=== PATIENT | male | born 1950 | race Caucasian/White ===

== ENCOUNTER 2024-09-09 07:27 | Inpatient (IN) ==
--- OUTSIDE RECORDS SUMMARY | 2024-09-09 07:33 | External Medical Summary | Summary of Care ---
Author Name Unknown Organization [facility] Address [address] [facility] [place] [address] Phone [phone] Care Team Providers Care Cardiac Cath Technologist Name Role Phone Aman Crawford MD Primary Care Provider [phone] Encounter Details Date Type Department Care Team (Late st Contact Info) Description 08/17/2024 Population Health External Data Unspecified Department Allergies Active Allergy Reactions Criticality Noted Date Comments Bee Venom 04/10/2019 Hornet Venom 05/18/2019 Penicillin G 05/27/2001 Penicillins Unknown 12/31/1997 Made prostate swell Tolerated ancef 04/09/14 no reaction documented as of this encounter (statuses as of 08/17/2024) Medications MULTIPLE VITAMIN PO CAPS one pill each day Active OMEGA 3 1000 MG PO CAPS one pill each day Active OCUVITE PO TABS 2 Active Turmeric 500 MG Capsule Take 1 Capsule by mouth in the morning. Active Calcium Polycarbophil (FIBER) 625 MG TABSIndications:u se as directed Activ e Fluticasone-Salme terol 100-50 MCG/ACT Inhalation Aerosol Powder Breath Activated (Advair Diskus) Inhale 1 Puff by mouth in the morning and 1 Puff before bedtime. 2 Active Ciclopirox 8 % External Solution Apply over nail and surrounding skin. Apply daily over previous coat. After seven (7) days, may remove with alcohol and continue cycle. 6.6 mL 6 4 Active Tiotropium [place] Monohydrate 18 MCG Inhalation Capsule (Spiriva HandiHaler)Indica tions:in afternoon Inhale 1 Capsule by mouth daily. For inhaler only, do not swallow. Active Atorvastatin Calcium 10 MG Oral Tablet (Lipitor)Indicati ons:Dyslipidemia, goal LDL below 100 Take 1 Tablet by mouth in the morning. In the morning.. 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 Increased risk for Kathleen Syndrome. Prostatitis 06/15/2016 01/21/2018 Malignant neoplasm of latera l wall of urinary bladder 04/06/2014 02/07/2023 Solitary kidney, congenital 07/28/2012 01/21/2018 Benign neoplasm of colon 02/19/2009 Overview (02/20/2009): hyperplastic/repeat colonoscopy in 3-5 yrs ADVANCE DIRECTIVE INFORMATION 12/28/2005 02/06/2021 Overview (12/28/2005): Pt has booklet. PEPTIC ULCER NOS -/96 06/02 documented as of this encounter (statuses as of 08/17/2024) Immunizations Name Administration Dates Next Due COVID-19 mRNA, LNP-s, No Pre serve, 2-Dose Series (Moderna) 05/16/2021,09/28/2020,08/31/2020 COVID-19, mRNA, LNP-s, PF, B ooster, 100mcg/0.5mg (Moderna) 08/16/2021 Pneumococcal Conjugate Vacc, 13 Valent (Prevnar) 11/16/2017 Pneumococcal Polysaccharide PPV23 (Pneumovax) 05/14/2018,11/23/2014,06/10/2009 Seasonal Influenza Vac., MDV , IM, 0.5 mL (Fluzone) 05/12/2016,05/31/2013,05/18/2012,05/26,05/17/2009 Seasonal Influenza, Quadriva lent Hd (Fluzone Hd) 05/19/2023 Seasonal Influenza, Quadriva lent Hd, 65+ Yrs 05/22/2022,05/11/2020 Seasonal Influenza, Quadriva lent, No Preserve, IM 06/06/2015 Seasonal Influenza, Trivalen t, Adjuvanted, 65+ YRS, PF, (Fluad) 05/03/2021 TDAP, Age 7 and older, IM (Adacel) 02/14/2024, Varicella Zoster Vaccine (Adult) 09/17/2011 Zoster Vaccine Recombinant (Shingrix) 05/29/2021 ,02/21/2021 documented as of this encounter Social History Tobacco Use Types Packs/Day Years Used Date Smoking Tobacco: Every Day Cigarettes 1 56 Smokeless Tobacco: Never Alcohol Use Standard Drinks/Week Comments Yes 1.7 (1 standard drink = 0.6 oz p ure alcohol) once a week PHQ-2 Answer Date Recorded PHQ-2 Score 0 05/01/2020 Hunger Vital Sign Answer Date Recorded Within the past 12 months, y ou worried that your food would run out before you got the money to buy more. Never true 02/10/20 23 Within the past 12 months, t he food you bought just didn't last and you didn't have money to get more. Never true 02/09/2023 Childcare Answer Date Recorded Do you feel overwhelmed with taking care of a child, family member or friend? No 02/09/2023 Does your family need help f inding childcare? (Household - for ages 0-17 years) Not on file 02/09/2023 Clothing Answer Date Recorded Have you been unable to get clothing when it was really needed? No 02/09/2023 Is your family able to get c lothes or diapers when needed? (Household - for ages 0-17 years) Not on file 02/09/2023 Personal Safety Answer Date Recorded Do you feel unsafe or have concerns for your saf ety? No 02/09/2023 Do you have concerns for you r family's safety? (Household - for ages 0-17 years) Not on file 02/09/2023 Utilities Answer Date Recorded Do you have trouble paying y our heating, water, or electric bill? No 02/09/2023 Is your family able to pay t he heat, water, or electric bill? (Household - for ages 0-17 years) Not on file 02/09/2023 Does your family have access to good internet? (Household - for ages 0-17 years) Not on file 02/09/2023 Employment Status Answer Date Recorded Are you unemployed or without regular income? No 02/09/2023 Does the household have a re gular source of income? (Household - for ages 0-17 years) Not on file 02/09/2023 Social Connections Answer Date Recorded How often do you feel lonely or isolated from th ose around you? Never 02/09/2023 Financial Resource Strain Answer Date R ecorded Do you have any trouble payi ng for your medications, or do you think you might in the future? No 02/09/2023 Does your family have troubl e paying for medicine? (Household - for ages 0-17 years) Not on file 02/09/2023 Transportation Needs Answer Date Record ed READ ONLY Do you have troubl e getting a ride to medical visits or work? Never True 02/09/2023 Does your family have a hard time getting a ride to doctors visits? (Household - for ages 0-17 years) Not on file 02/09/2023 Has lack of transportation k ept you from medical appointments, meetings, work, or from getting things needed for daily living? Check all that apply. (Adult - for ages 18 years and over) Not on file 02/09/2023 Do you (or your family) have trouble finding or paying for a ride (transportation)? (Household - for ages 0-17 years) Not on file 02/09/2023 Housing Stability Answer Date Recorded Do you currently live in a s helter or have no steady place to sleep at night? No 02/09/2023 READ ONLY Do you think you a re at risk of becoming homeless? No 02/09/2023 Does your family worry about paying for your home or becoming homeless? (Household - for ages 0-17 years) Not on file 0 02/09/2023 Are you homeless or worried that you might be in the future? (Adult - for ages 18 years and over) Not on file 3 Are you (or your family) robert eless or worried that you might be in the future? (Household - for ages 0-17 years) Not on file Food Insecurity Answer Date Recorded Do you need food for this week? No 02/09/2023 Are you able to get enough f ood for your family? (Household - for ages 0-17 years) Not on file 02/09/2023 Does your family need food t his week? (Household - for ages 0-17 years) Not on file 02/09/2023 Do you always have enough fo od for your family? (Household - for ages 0-17 years) Not on file 02/09/2023 Sex and Gender Information Value Date Recorded Sex Assigned at Male 02/09/2023 1:01 PM EDT Legal Sex Male 7:04 AM EST Gender Identity Male 02/09/2023 1:01 PM EDT Sexual Orientation Straight 02/09/2023 1: 01 PM EDT Occupation Industry Job Start Date Job End Date retired: [employer] Not on file Not on file Not on file documented as of this encounter Plan of Treatment Upcoming Encounters Date Type Department Care Team (Late st Contact Info) Description 10/26/2024 9:00 AM EDT Imaging Radiology [address] [place] [id number] Scheduled Procedures Name Priority Associated Diagnoses Date/Ti me COLONOSCOPY FLEXIBLE PROXIMAL DIAGNOSTIC Recall Kathleen syndrome History of colonic polyps ESOPHAGOGASTRODUODENOSCOPY ( EGD), FLEXIBLE, TRANSORAL, DIAGNOSTIC Recall Kathleen syndrome History of colonic polyps Health Maintenance Due Date Last Done Comments DISCUSS TOBACCO CESSATION (REFER TO SMARTSET #2601) 1950 Alpha-1 Antitrypsin 1967 Adult Wellness Visit 05/01/2021 05/01/2020 Depression Screening 05/01/2021 05/01/2020 COVID-19 Vaccine ( season) 2024 05/20/2023, 04/11/2022, 08/16/2021, Additional history exists Influenza Vaccine (FLU shot) (#1) 2024 05/19/2023, 05/22/2022, 05/03/2021, Additional history exists Colonoscopy Positive Kathleen Syndrome Annual,Ages 25 & Up 01/20/2025 01/21/2024, 01/21/2024, 06/23/2018, Additional history exists O2 ASSESSMENT COMPLETED IN PAST YEAR FOR COPD 01/20/2025 01/21/2024 DTap/Tdap Vaccines (3 - Td or Tdap) 02/13/2034 02/14/2024, 09/23/2012 Pneumococcal Vaccine: 50+ Years Completed 05/14/2018, 11/16/2017, 11/23/2014, Additional history exists Zoster Vaccines Completed 05/29/2021, 01/25, 02/21/2021, Additional history exists Lung Cancer Screening Completed 08/03/2022 , 06/25/2022, 06/16/2021, Additional history exists HPV (Gardasil) Vaccine Aged Out No lo nger eligible based on patient's age to complete this topic Hepatitis B Vaccine Aged Out No longe r eligible based on patient's age to complete this topic MENINGOCOCCAL (MENACTRA/MENVEO) Aged Out No longer eligible based on patient's age to complete this topic documented as of this encounter Medical Devices Implanted Type Area Sponge Fisherman Device Identifier Shelf Expiration Date Model / Serial / Lot Mesh Preshaped Large - [id number] Implanted:Qty: 1 on 09/23/2015 by José Antonio Castro MD at OR [facility] Right: Groin CR BARD : DAVOL 02/22/2019 [id number] / / [id number] documented as of this encounter Advance Directives * Full Code (Latest Code Status on File) Date Activated Date Inactivated Comments 05/25/2014 10:11 AM 05/25/2014 5:38 PM This orde r reflects the patients wishes and were consensually agreed upon. * Full Code Date Activated Date Inactivated Comments 04/09/2014 7:04 AM 04/09/2014 2:20 PM This order r eflects the patients wishes and were consensually agreed upon. Care Teams Cardiac Cath Technologist Relationship Specialty Start Date End Date Aman Crawford MD [address] [place] [id number] PCP - General Family Medicine 10/31/20 documented as of this encounter
--- NOTE | 2024-09-09 07:58 | Emergency Department Note ---
Impression & Plan Acute exacerbation of chronic obstructive pulmonary disease, Hypoxia, Influenza A, Pneumonia ED Provider Note NAME: NATALIE JACKSON AGE: 74 SEX: M : 1950 ARRIVES VIA: Walk-In INFORMANT: Patient, ED PROVIDER(S): Khoi Miles DO CHIEF COMPLAINT: Shortness of breath HPI: The patient is a 74-year-old male who presented to the emergency department for an evaluation of shortness of breath. The patient noticed worsening shortness of breath over the course the last 4 to 5 days. He is had a cough with dark sputum. He denies having any fever. He has had some weight loss recently. He does have a history of tobacco use as well as bladder cancer. He denies having any abdominal pain or vomiting. The patient states his symptoms have slowly been worsening and are now at rest as well as with exertion. His significant other asked him to come the emergency department today. ROS: See above HPI for pertinent positives & negatives. A total of 10 systems reviewed and were otherwise negative. PAST MEDICAL HISTORY: See Below PAST SURGICAL HISTORY: See Below FAMILY HISTORY: See Below SOCIAL HISTORY: See Below HOME MEDICATIONS: See Below ALLERGIES: See Below VITALS: See Below PHYSICAL EXAMINATION: GENERAL: The patient is awake and alert. He is very frail appearing. EYES: The conjunctivae are clear. The pupils are round and reactive. EARS, NOSE, MOUTH AND THROAT: The nose is without any evidence of any deformity. NECK: The neck is nontender and supple. RESPIRATORY: Diminished breath sounds are noted throughout. There was significant tachypnea as well as conversational dyspnea. CARDIOVASCULAR: Tachycardic and regular heart sounds were noted to auscultation. There is no definite murmur. GASTROINTESTINAL: The abdomen is soft. Abdomen is nontender. MUSCULOSKELETAL/EXTREMITIES: There is no evidence of gross deformity full range of motion is noted in the hips and shoulders. SKIN: There is no obvious evidence of any rash. There are no petechiae, pallor or cyanosis noted. NEUROLOGIC: Patient is awake alert and oriented x3 MEDICAL DECISION MAKING: The patient is a 74-year-old male who presented to the emergency department for an evaluation of difficulty breathing. Patient has a history of COPD. He does have a history of concurrent tobacco use. He was very hypoxic and tachycardic. He was treated with an hour-long DuoNeb as well as IV steroids IV fluids and IV antibiotics. He was also treated with Tamiflu after flu swab came back positive. I discussed the patient's laboratory and radiographic studies with him. Given his abnormal vital signs and findings I discussed his condition with the on-call [facility]. They have agreed to evaluate the patient in the emergency department for further management and disposition. Triage Nursing notes reviewed. Prior medical records reviewed Vital Signs: reviewed and remarkable for tachycardia and hypoxia. Differential diagnosis: Reactive airway disease, pneumonia, pneumothorax, COPD, CHF, infections, cardiac ischemia, pulmonary embolism, musculoskeletal, gastrointestinal, as well as other pathologies. ER treatment provided: See below Diagnostics interpreted by me: ECG: EKG was obtained in the emergency department. My interpretation is sinus tachycardia at 129 bpm. PVCs were noted. Nonspecific ST abnormalities were noted. This was compared to a tracing from November 22, 2012. There was an increase in the rate otherwise no specific changes noted. Cardiac Monitoring: An order was placed for continuous cardiac monitoring. The monitor shows a rate of 116 bpm with sinus tachycardia. Laboratory studies: As stated above and show below. Imaging studies: See below. Radiographic imaging was reviewed by myself Consultation(s): I discussed this case with Carmella who is on-call for the [facility]ist group. ED COURSE: Procedures: none Critical Care: I have personally spent greater than 45 minutes of critical care time in the direct management of this patient. This includes bedside care, interpretation of diagnostic studies, and testing, discussion with consultants, patient, and family members, and other required patient management activities. This 45 minutes is in excess of all separately billable procedures. Past Med/Surg History Problem List (Updated 09/09/24 @ 11:47 by Carmella Lino PA-C) Hypomagnesemia Acute hypoxic respiratory failure Bronchopneumonia Sepsis Pneumonia (Acute) Influenza A (Acute) Hypoxia (Acute) Acute exacerbation of chronic obstructive pulmonary disease (Acute) Solitary kidney Bladder cancer Medical History Hyperlipidemia Stomach ulcer No significant past medical history Surgical History S/P hernia repair S/P bladder tumor excision with fulguration Hx of arthroscopy of knee Family History Father Diabetes Sister Diabetes Mother Lung cancer Other No significant family history Social History Smoking Status: Former smoker Tobacco Type: Cigarettes Hx Alcohol Use: Yes Preferred Language: Andorran marital status: current occupational status: retired Feels Safe at Home: Yes Allergies Allergies Allergy/AdvReac Type Severity Reaction Status Date / Time Penicillins Allergy Intermediate PROSTATE Verified 05/29/20 10:41 SWELLED Home Meds Home Medications Medication Instructions Recorded Confirmed atorvastatin 10 mg tablet 10 mg PO DAILY 03/29/19 05/29/20 calcium carbonate (Calcium 600) 600 mg PO DAILY 03/29/19 05/29/20 cholecalciferol (vitamin D3) 50 2,000 unit PO DAILY 03/29/19 05/29/20 mcg (2,000 unit) capsule (Vitamin D3) glucosamine sulfate 500 mg tablet 500 mg PO DAILY 03/29/19 05/29/20 lactobacillus combination no.4 3 0 mmu cells PO DAILY 03/29/19 05/29/20 billion cell capsule (Probiotic) multivitamin 1 tab PO DAILY 03/29/19 05/29/20 vitamins A,C,C-qnok-rcsrxb 2,148 1 tab PO DAILY 03/29/19 05/29/20 mcg-113 mg-45 mg-17.4 mg tablet (PreserVision AREDS) Curcumin 1 cap PO DAILY 09/23/19 05/29/20 coenzyme Q10 30 mg capsule (CoQ-10) 30 mg PO DAILY 09/23/19 05/29/20 fiber 4 cap PO DAILY 09/23/19 05/29/20 Previous Rx's Medication Instructions Recorded epinephrine 0.3 mg/0.3 mL 0.3 mg (0.3 mL) IM Q3H PRN 03/29/19 injection, auto-injector (EpiPen bronchodilation #2 ea 2-Kamaljit) Results & Data (ED) Vital Signs Vital Signs - 24 hr 09/09/24 07:41 09/09/24 07:50 09/09/24 07:58 Temperature 37.4 C Temperature Source Oral Pulse Rate 128 H 122 H Pulse Rate [Right] Respiratory Rate 26 H 34 H Respiratory Effort / Characteristics Spontaneous Blood Pressure 125/77 Blood Pressure [Right Arm] Blood Pressure Mean 93 Blood Pressure Mean [Right Arm] Blood Pressure Position [Right Arm] Pulse Oximetry 87 L 81 L 76 L Oxygen Delivery Method Room Air Room Air Room Air Oxygen Flow Rate Sepsis Recent Fever Within 48 Hours No Sepsis New/Unexplained Change in Mental Status No Sepsis Action Taken by Nursing No Action Required Oxygen Flow Rate - Titration 4 Pulse Oximetry Post Tiitration 94 09/09/24 08:04 09/09/24 08:17 09/09/24 09:28 Temperature Temperature Source Pulse Rate 117 H Pulse Rate [Right] 124 H 128 H Respiratory Rate 19 24 Respiratory Effort / Characteristics Non-Labored Spontaneous Spontaneous Blood Pressure Blood Pressure [Right Arm] 132/84 Blood Pressure Mean Blood Pressure Mean [Right Arm] 100 Blood Pressure Position [Right Arm] Sitting Pulse Oximetry 96 96 Oxygen Delivery Method Nasal Cannula Nasal Cannula Oxygen Flow Rate 4 4 Sepsis Recent Fever Within 48 Hours Sepsis New/Unexplained Change in Mental Status Sepsis Action Taken by Nursing Oxygen Flow Rate - Titration Pulse Oximetry Post Tiitration 09/09/24 11:00 Temperature Temperature Source Pulse Rate Pulse Rate [Right] 116 H Respiratory Rate 22 Respiratory Effort / Characteristics Spontaneous Blood Pressure Blood Pressure [Right Arm] 102/64 Blood Pressure Mean Blood Pressure Mean [Right Arm] 76 Blood Pressure Position [Right Arm] Sitting Pulse Oximetry 95 Oxygen Delivery Method Nasal Cannula Oxygen Flow Rate 4 Sepsis Recent Fever Within 48 Hours Sepsis New/Unexplained Change in Mental Status Sepsis Action Taken by Nursing Oxygen Flow Rate - Titration Pulse Oximetry Post Tiitration Home Medications Current Medication List: was personally reviewed by me Laboratory Data Attestation: I reviewed the patient's lab results. 09/09/24 07:52 09/09/24 07:52 Lab Results 09/09/24 09/09/24 09/09/24 Range/Units 07:51 07:52 09:50 WBC 17.88 H (4.8-10.8) K/ul RBC 4.95 (4.70-6.10) M/uL Hgb 15.3 (14.0-18.0) g/dl Hct 45.3 (42.0-52.0) % MCV 91.5 (80.0-100.0) fL MCH 30.9 (25.0-34.0) pg MCHC 33.8 (32.0-36.0) g/dL RDW Std Deviation 47.2 H (36.4-46.3) fL RDW Coeff of Tiago 14.0 (11.5-14.5) % Plt Count 209 (130-400) K/uL MPV 10.0 (9.4-12.4) fL Immature Gran % (Auto) 0.6 % Neut % (Auto) 93.5 % Lymph % (Auto) 0.8 % [place] % (Auto) 4.8 % Eos % (Auto) 0.1 % Baso % (Auto) 0.2 % Neut # (Auto) 16.74 H (1.40-6.50) K/uL Lymph # (Auto) 0.14 L (1.20-3.40) K/uL [place] # (Auto) 0.85 H (0.11-0.59) K/uL Eos # (Auto) 0.01 (0.00-0.50) K/uL Baso # (Auto) 0.03 (0.00-0.20) K/uL Immature Gran # (Auto) 0.11 (0.01-0.20) K/uL PT 11.1 (9.0-12.0) Seconds INR 1.0 (0.9-1.1) APTT 30 (21-31) Seconds PTT Ratio 1.1 D-Dimer 1010 H* (0-500) ug/L FEU VBG pH 7.42 H (7.36-7.41) VBG pCO2 45 (38-50) mmHg VBG pO2 29 mmHg VBG HCO3 29 mmol/L VBG O2 Saturation < 60.0 % VBG Base Excess 3.9 mEq/L Sodium 134 L (136-145) mmol/L Potassium 4.1 (3.5-5.1) mmol/L Chloride 93 L (98-107) mmol/L Carbon Dioxide 30 (21-32) mmol/L Anion Gap 11 (3-11) BUN 26 H (6-23) mg/dl Creatinine 1.10 (0.6-1.4) mg/dl Est Cr Clr Drug Dosing 47.4 ml/min eGFR 70.01 BUN/Creatinine Ratio 23.6 H (10-20) Glucose 120 H (70-99(Fasting)) mg/dl Calcium 9.8 (8.6-10.3) mg/dl Magnesium 1.6 L (1.7-2.4) mg/dl Total Bilirubin 1.0 (0.2-1.0) mg/dl AST 21 (13-39) U/L ALT 16 (7-52) U/L Alkaline Phosphatase 55 (34-104) U/L Troponin I High Sens 36.2 H 30.4 H (0-20) pg/ml C-Reactive Protein 23.20 H (0-0.5) mg/dl B-Natriuretic Peptide 281 H (0-100) pg/ml Total Protein 8.3 (6.0-8.3) gm/dl Albumin 4.3 (3.4-5.0) gm/dl Globulin 4.0 (2.5-4.0) gm/dl Albumin/Globulin Ratio 1.1 (0.9-2) Procalcitonin 0.14 (0-0.5) ng/ml Adenovirus (PCR) Not Detected (NotDetected) B. pertussis DNA (PCR) Not Detected (NotDetected) B.parapertussis DNA PCR Not Detected (NotDetected) C. pneumoniae DNA (PCR) Not Detected (NotDetected) Coronavirus OC43 (PCR) Not Detected (NotDetected) Coronavirus HKU1 (PCR) Not Detected (NotDetected) Coronavirus 229E (PCR) Not Detected (NotDetected) SARS-CoV-2 (PCR) Not Detected (NotDetected) Coronavirus NL63 (PCR) Not Detected (NotDetected) Human Metapneumovir PCR Not Detected (NotDetected) Influenza A Untype (PCR) DETECTED A (NotDetected) Influenza Type B (PCR) Not Detected (NotDetected) M. pneumoniae (PCR) Not Detected (NotDetected) Parainfluenza 1 (PCR) Not Detected (NotDetected) Parainfluenza 2 (PCR) Not Detected (NotDetected) Parainfluenza 3 (PCR) Not Detected (NotDetected) Parainfluenza 4 (PCR) Not Detected (NotDetected) RSV (PCR) Not Detected (NotDetected) Entero/Rhino (PCR) Not Detected (NotDetected) Administered Medications Discontinued Medications Albuterol (Albut/Ipratrop 3mg/0.5mg Neb 3 Ml Vial) 12 ml NEB ONE ONE; Protocol Stop: 09/09/24 07:51 Last Admin: 09/09/24 08:00 Dose: 12 ml Documented By: RUSH Sodium Chloride (Nss) 500 mls @ 999 mls/hr IV .Q31M ONE Stop: 09/09/24 08:20 Last Infusion: 09/09/24 09:24 Dose: Infused Documented By: Admin: 09/09/24 08:05 Dose: 999 mls/hr Documented By: TONY Magnesium Sulfate/Dextrose (Magnesium Sulfate / D5w) 1 gm in 100 mls @ 100 mls/hr IV NOW STA Stop: 09/09/24 08:49 Last Infusion: 09/09/24 09:24 Dose: Infused Documented By: Admin: 09/09/24 08:06 Dose: 100 mls/hr Documented By: TONY Sodium Chloride (Nss) 500 mls @ 999 mls/hr IV .Q31M ONE Stop: 09/09/24 09:02 Last Infusion: 09/09/24 10:09 Dose: Infused Documented By: Admin: 09/09/24 09:25 Dose: 999 mls/hr Documented By: TONY Ceftriaxone Sodium (Rocephin) 2,000 mg in 50 mls @ 100 mls/hr IV NOW STA Stop: 09/09/24 09:02 Last Infusion: 09/09/24 10:08 Dose: Infused Documented By: Admin: 09/09/24 09:04 Dose: 100 mls/hr Documented By: TONY Ioversol (Optiray 320 125ml) 118 ml IV ONCE ONE Stop: 09/09/24 10:20 Last Admin: 09/09/24 10:19 Dose: 118 ml Documented By: JANINA Methylprednisolone (Methylprednisolone 125 Mg/2 Ml Vial) 125 mg IV NOW STA Stop: 09/09/24 07:51 Last Admin: 09/09/24 08:05 Dose: 125 mg Documented By: TONY Imaging Data Attestation: I personally reviewed and interpreted this imaging study as follows: My Impression: 1 view chest x-ray was obtained in the emergency department. My interpretation is acute hyperinflation, nodular densities noted with the possibility of an infiltrate especially at the left base, final report below. Radiologist's Impression: Chest X-Ray 09/09/24 07:50 EXAM: XR chest 1V portable CLINICAL HISTORY: Dyspnea. TECHNIQUE: An X-ray image of the chest is obtained in PA projection. COMPARISON: No prior studies are available for comparison. FINDINGS: Pulmonary Parenchyma: Left lower small nodular opacity, follow-up is needed. Hyperinflatted both lungs suggesting emphysematous changes. Bulky both yahaira with peripheral pruning of pulmonary artery suggesting pulmonary arterial hypertension. Bilateral mainly basal increase bronchovascular markings with peribronchial wall thickening suggesting lung congestion. No evidence of consolidation, collapse, or focal opacities. No pulmonary nodules are identified. No evidence of pleural effusion or pleural thickening. Heart and Mediastinum: Heart size and shape are normal. No mediastinal widening or masses. No hilar or mediastinal lymphadenopathy. Bony Thorax: The bony thorax appears intact without fractures or deformities. Soft Tissues: Soft tissues overlying the chest wall are unremarkable. IMPRESSION: 1. Left lower small nodular opacity, follow-up is needed. 2. Hyperinflatted both lungs suggesting emphysematous changes. 3. Bulky both yahaira with the peripheral running of pulmonary artery suggesting pulmonary arterial hypertension. 4. Accentuated perihilar and basal bronchovascular markings suggest lung congestion. Electronically signed by Jaquan Rodriguez 09-09-2024 08:45 AM Chest CTA 09/09/24 08:36 CT ANGIOGRAPHY OF THE CHEST, PULMONARY EMBOLUS PROTOCOL CLINICAL HISTORY: Chest pain and shortness of breath. Evaluate for pulmonary embolus. COMPARISON STUDY: Chest radiograph performed earlier today. TECHNIQUE: Following IV administration of 118 mL of Optiray, helical axial images of the chest were obtained utilizing the pulmonary embolus protocol. Maximal intensity projections and sagittal and coronal reformats were viewed on an independent 3D workstation. IV contrast was administered without complication. Automated exposure control was utilized for the study. A dose lowering technique was utilized adhering to the principles of ALARA. CT DOSE: 362.81 mGy.cm FINDINGS: No pulmonary emboli are identified. There is no thoracic aortic dissection. Size of the heart is normal. Extensive coronary artery calcification is present. Enlarged right hilar lymph node on image 152 of 291 measures 2.6 x 1.6 cm. Severe emphysema is noted. Several small subpleural alveolar opacities are present. The largest is within the left lower lobe. There are additional alveolar opacities within the right middle lobe and right lower lobe. Scattered tree-in-bud nodules are present. Lungs are suboptimally assessed due to respiratory motion. Bronchial wall thickening is present. A small amount of secretions within the trachea are present. There is no central obstructing mass. A 1.7 cm subpleural nodular density within the superior segment of the left lower lobe on image 167 is noted. There is an additional circumscribed 8 mm right upper lobe nodule on image 220. No acute fractures are identified within the bony thorax. There is a 4 mm left renal calculus. IMPRESSION: 1. No pulmonary emboli identified. 2. Emphysema. 3. A few small subpleural alveolar opacities suggestive of an infectious process such as bronchopneumonia. Scattered tree-in-bud nodules. Mild bronchial wall thickening. 4. 1.7 cm subpleural nodular opacity within the left lower lobe. This is indeterminate and a neoplasm cannot be excluded. A resolving pneumonia could appear similar. A follow-up chest CT in 2 months is recommended. 5. Mildly enlarged right hilar lymph node. This may be reactive but should be assessed on follow-up CT to ensure stability/resolution. 6. Extensive coronary artery calcification. ACT 112: Negative or not required by law. Electronically signed by: Wm Alexander M.D. 09/09/2024 10:59 AM Discharge Plan Visit Data Chief Complaint: Shortness of Breath/Dyspnea Stated Complaint: SOB, COUGH, CONGESTION ED Provider: Khoi Miles Discharge Problem: Acute exacerbation of chronic obstructive pulmonary disease, Hypoxia, Influenza A, Pneumonia Patient Disposition: Being Evaluated by Hospitalist Forms Stand Alone Forms: My [facility] Prescriptions Prescriptions: No Action coenzyme Q10 [CoQ-10] 30 mg Capsule 30 mg PO DAILY Curcumin 1 cap PO DAILY fiber 4 cap PO DAILY multivitamin Tablet 1 tab PO DAILY atorvastatin 10 mg tablet 10 mg PO DAILY glucosamine sulfate 500 mg Tablet 500 mg PO DAILY calcium carbonate [Calcium 600] 600 mg calcium (1,500 mg) Tablet 600 mg PO DAILY cholecalciferol (vitamin D3) [Vitamin D3] 2,000 unit Capsule 2,000 unit PO DAILY Probiotic 3 billion cell Capsule 0 mmu cells PO DAILY PreserVision AREDS [id number] Tablet 1 tab PO DAILY epinephrine [EpiPen 2-Kamaljit] 0.3 mg/0.3 mL auto-injector 0.3 mg IM Q3H PRN (Reason: bronchodilation) Qty: 2 0RF Rx Instructions: until response Referrals Referrals: Sukhwinder Nelson MD [Hospitalist] -
[2024-09-09] MEDS: ALBUT/IPRATROP 3MG/0.5MG NEB 3 ML VIAL NEB ONE (08:00)
[2024-09-09 08:02] LABS: Base Excess VBG 3.9 mEq/L; HCO3 VBG 29 mmol/L; Oxygen Saturation VBG < 60.0 %; PCO2 VBG 45 mmHg (38-50); PO2 VBG 29 mmHg; pH VBG 7.42 (7.36-7.41)
[2024-09-09] MEDS: methylPREDNISolone 125 MG/2 ML VIAL IV STA (08:05)
[2024-09-09] MEDS: SODIUM CHLORIDE 0.9% 500 ML IV ONE ×3 (08:05→12:46)
[2024-09-09] MEDS: MAGNESIUM SULFATE / D5W 1 GM/100 ML BAG IV STA ×2 (08:06→13:51)
[2024-09-09 08:11] LABS: Hematocrit (blood only) 45.3 % (42.0-52.0); Hemoglobin 15.3 g/dl (14.0-18.0); Mean Corpuscular Hemoglobin 30.9 pg (25.0-34.0); Mean Corpuscular Hgb Conc 33.8 g/dL (32.0-36.0); Mean Corpuscular Volume 91.5 fL (80.0-100.0); Platelet Count 209 K/uL (130-400); RDW Standard Deviation 47.2 fL (36.4-46.3); Red Blood Count 4.95 M/uL (4.70-6.10); White Blood Count 17.88 K/ul (4.8-10.8)
[2024-09-09 08:27] LABS: Albumin Globulin Ratio 1.1 (0.9-2); Albumin Level 4.3 gm/dl (3.4-5.0); BUN Creatinine Ratio 23.6 (10-20); Calcium 9.8 mg/dl (8.6-10.3); Creatinine Clr Calc Pharmacy 47.4 ml/min; Magnesium 1.6 mg/dl (1.7-2.4); Potassium 4.1 mmol/L (3.5-5.1); Total Protein 8.3 gm/dl (6.0-8.3)
[2024-09-09 08:32] LABS: Troponin I High Sensitivity 36.2 pg/ml (0-20)
[2024-09-09 08:34] LABS: Partial Thromboplastin Ratio 1.1; Partial Thromboplastin Time 30 Seconds (21-31); Prothrombin Time 11.1 Seconds (9.0-12.0)
[2024-09-09 08:37] LABS: D Dimer 1010 ug/L FEU (0-500)
[2024-09-09 08:38] LABS: Basophils # (auto) 0.03 K/uL (0.00-0.20); Basophils % (auto) 0.2 %; Eosinophils # (auto) 0.01 K/uL (0.00-0.50); Eosinophils % (auto) 0.1 %; Immature Granulocytes # (auto) 0.11 K/uL (0.01-0.20); Immature Granulocytes % (auto) 0.6 %; Lymphocytes # (auto) 0.14 K/uL (1.20-3.40); Lymphocytes % (auto) 0.8 %; Monocytes # (auto) 0.85 K/uL (0.11-0.59); Monocytes % (auto) 4.8 %; Neutrophils # (auto) 16.74 K/uL (1.40-6.50); Neutrophils % (auto) 93.5 %
--- NOTE | 2024-09-09 08:45 | XRay Report ---
EXAM: XR chest 1V portable CLINICAL HISTORY: Dyspnea. TECHNIQUE: An X-ray image of the chest is obtained in PA projection. COMPARISON: No prior studies are available for comparison. FINDINGS: Pulmonary Parenchyma: Left lower small nodular opacity, follow-up is needed. Hyperinflatted both lungs suggesting emphysematous changes. Bulky both yahaira with peripheral pruning of pulmonary artery suggesting pulmonary arterial hypertension. Bilateral mainly basal increase bronchovascular markings with peribronchial wall thickening suggesting lung congestion. No evidence of consolidation, collapse, or focal opacities. No pulmonary nodules are identified. No evidence of pleural effusion or pleural thickening. Heart and Mediastinum: Heart size and shape are normal. No mediastinal widening or masses. No hilar or mediastinal lymphadenopathy. Bony Thorax: The bony thorax appears intact without fractures or deformities. Soft Tissues: Soft tissues overlying the chest wall are unremarkable. IMPRESSION: 1. Left lower small nodular opacity, follow-up is needed. 2. Hyperinflatted both lungs suggesting emphysematous changes. 3. Bulky both yahaira with the peripheral running of pulmonary artery suggesting pulmonary arterial hypertension. 4. Accentuated perihilar and basal bronchovascular markings suggest lung congestion. Electronically signed by Jaquan Rodriguez 09-09-2024 08:45 AM
[2024-09-09 08:59] LABS: C Reactive Protein 23.2 mg/dl (0-0.5)
[2024-09-09] MEDS: cefTRIAXone SODIUM 2,000 MG/50 ML BAG IV STA (09:04)
[2024-09-09 09:53] LABS: Adenovirus PCR Not Detected (NotDetected); Bordetella parapertussis PCR Not Detected (NotDetected); Bordetella pertussis PCR Not Detected (NotDetected); Chlamydia pneumoniae PCR Not Detected (NotDetected); Coronavirus 229E PCR Not Detected (NotDetected); Coronavirus CoV-2 (COVID19)PCR Not Detected (NotDetected); Coronavirus HKU1 PCR Not Detected (NotDetected); Coronavirus NL63 PCR Not Detected (NotDetected); Coronavirus OC43PCR Not Detected (NotDetected); Human Metapneumovirus PCR Not Detected (NotDetected); Influenza A NoSubtype PCR DETECTED (NotDetected); Influenza B PCR Not Detected (NotDetected); Mycoplasma pneumoniae PCR Not Detected (NotDetected); Parainfluenza Virus 1 PCR Not Detected (NotDetected); Parainfluenza Virus 2 PCR Not Detected (NotDetected); Parainfluenza Virus 3 PCR Not Detected (NotDetected); Parainfluenza Virus 4 PCR Not Detected (NotDetected); Respiratory Syncytial VirusPCR Not Detected (NotDetected); Rhinovirus/Enterovirus PCR Not Detected (NotDetected)
[2024-09-09] MEDS: OPTIRAY 320 125ml IV ONE (10:19)
--- NOTE | 2024-09-09 11:01 | CT Scan Report ---
CT ANGIOGRAPHY OF THE CHEST, PULMONARY EMBOLUS PROTOCOL CLINICAL HISTORY: Chest pain and shortness of breath. Evaluate for pulmonary embolus. COMPARISON STUDY: Chest radiograph performed earlier today. TECHNIQUE: Following IV administration of 118 mL of Optiray, helical axial images of the chest were o btained utilizing the pulmonary embolus protocol. Maximal intensity projections and sagittal and cor onal reformats were viewed on an independent 3D workstation. IV contrast was administered without co mplication. Automated exposure control was utilized for the study. A dose lowering technique was ut ilized adhering to the principles of ALARA. CT DOSE: 362.81 mGy.cm FINDINGS: No pulmonary emboli are identified. There is no thoracic aortic dissection. Size of the he art is normal. Extensive coronary artery calcification is present. Enlarged right hilar lymph node on image 152 of 291 measures 2.6 x 1.6 cm. Severe emphysema is noted. Several small subpleural alveolar opacities are present. The largest is within the left lower lobe. There are additional alveolar opac ities within the right middle lobe and right lower lobe. Scattered tree-in-bud nodules are present. L ungs are suboptimally assessed due to respiratory motion. Bronchial wall thickening is present. A sma ll amount of secretions within the trachea are present. There is no central obstructing mass. A 1.7 c m subpleural nodular density within the superior segment of the left lower lobe on image 167 is noted . There is an additional circumscribed 8 mm right upper lobe nodule on image 220. No acute fractures are identified within the bony thorax. There is a 4 mm left renal calculus. IMPRESSION: 1. No pulmonary emboli identified. 2. Emphysema. 3. A few small subpleural alveolar opacities suggestive of an infectious process such as bronchopneum onia. Scattered tree-in-bud nodules. Mild bronchial wall thickening. 4. 1.7 cm subpleural nodular opacity within the left lower lobe. This is indeterminate and a neoplasm cannot be excluded. A resolving pneumonia could appear similar. A follow-up chest CT in 2 months is recommended. 5. Mildly enlarged right hilar lymph node. This may be reactive but should be assessed on follow-up C T to ensure stability/resolution. 6. Extensive coronary artery calcification. ACT 112: Negative or not required by law. Electronically signed by: Wm Alexander M.D. 09/09/2024 10:59 AM
--- NOTE | 2024-09-09 11:16 | Electrocardiogram Report ---
Test Reason : Blood Pressure : */* mmHG Vent. Rate : 129 BPM Atrial Rate : 129 BPM P-R Int : 154 ms QRS Dur : 80 ms QT Int : 288 ms P-R-T Axes : 87 81 81 degrees QTcB Int : 421 ms Sinus tachycardia with occasional Premature ventricular complexes Right atrial enlargement Minimal voltage criteria for LVH, may be normal variant Borderline ECG Confirmed by Boaz Marie ([id number]) on 09/09/2024 11:16:35 AM Referred By: REFERRED SELF Confirmed By: Boaz Marie
--- NOTE | 2024-09-09 11:41 | History & Physical Report ---
Date of Service September 09, 2024 Assessment & Plan (1) Severe sepsis: (2) Lactic acidosis: (3) Influenza A: (4) Bronchopneumonia: (5) Acute hypoxic respiratory failure: (6) Acute exacerbation of COPD with asthma: Plan: Will Garcia is a 74y/o M with PMHx significant for HLD, asthma-COPD overlap syndrome, multiple lung nodules, diverticulosis, congenital left single kidney, Kathleen syndrome, nonmuscle invasive bladder cancer currently under surveillance with [facility] and tobacco use disorder who presented to the ED for evaluation secondary to productive cough and SOB. Was sating at 76% on RA on arrival. Now on 5L NC and saturating in low-mid 90s SpO2. Meets severe sepsis criteria given HR>100, WBC>12k, RR>20, active infection and lactic acidosis. Initial labs reviewed. WBC 17.8k, lactate 3.1. Negative procalcitonin. Respiratory BioFire panel + for influenza A. D-dimer 1010. Chest CTA negative for PE but does note few small subpleural alveolar opacities c/f bronchopneumonia. CXR with accentuated perihilar basilar bronchovascular markings suggesting lung congestion, hyperinflated lungs suggesting emphysematous changes. S/p 1L NSS and 2g IV Rocephin. Also given dose of Tamiflu in ED - will continue. Check nasal MRSA. Continue home inhalers. Wean O2 as able. Continue ABX coverage with IV cefepime and po Zithromax. Continue probiotic. S/p 125mg IV Solu-Medrol in ED. Continue 40mg IV Solu-Medrol Q8H. UA pending. Continue scheduled Xopenex/Atrovent nebs. Hypertonic nebs twice daily. Mucinex twice daily. Obtain sputum culture as able. Blood cultures pending. Continue IVF. Trend lactate. (7) Elevated d-dimer: (8) Elevated brain natriuretic peptide (BNP) level: Plan: D-dimer elevated as per above. No sign of PE on chest CTA. Will check BLE venous Doppler ultrasounds. BNP 281. May be elevated 2/2 acute respiratory distress as per above. Will check resting echocardiogram. (9) Bladder cancer: Plan: Follows with Dr. Bell of [facility]. Patient with recurrence of non-muscle invasive bladder cancer. Recurrent bladder cancer with low-grade TA disease on most recent biopsy. Currently under continued surveillance with cystoscopy every 3 months. (10) Hypomagnesemia: Plan: Mag 1.6 on presentation. S/p 1gm IV mag in ED. Will give additional 1gm IV mag. Continue to monitor and replete PRN. (11) Incidental lung nodule: Plan: Chest CTA notes a 1.7cm subpleural nodular opacity within the left lower lobe. This is indeterminate and neoplasm cannot be excluded. A resolving pneumonia could appear similar. Will need follow-up chest CT in 2 months. (12) Pulmonary arterial hypertension: Plan: CXR c/f findings of pulmonary arterial hypertension. No previous diagnosis of this condition on outpatient chart review. Follows with a ip litigation associate at [facility] [place] - unsure of name. Will need close outpatient pulmonology follow-up appointment upon discharge. (13) Elevated troponin: Plan: Suspect demand ischemia ISO acute illness as per above. Continue to trend troponin Q6H until flat. EKG with chest pain PRN. EKG daily x 2. (14) Tobacco use disorder: Plan: Smokes 1ppd. Denies need for nicotine patch. Encourage smoking cessation. (15) Hyperlipidemia: Plan: Chronic, stable. Continue atorvastatin 10mg daily. DVT Prophylaxis: SQ Heparin Code Status: FULL CODE - As per direct conversation with patient at bedside. PCP: Aman Crawford MD Disposition: Admit to PCU/Telemetry for further inpatient evaluation and management. Patient seen in collaboration with Dr. Willis. Please see addendum. I spent a total of 65 minutes coordinating, documenting, and providing care for this patient excluding time spent in the performance of separately billed services or time spent by another provider/QHP. This included personally reviewing all current laboratories and imaging studies, medical reconciliation, outpatient chart review and discussion with specialists. This chart was completed in part utilizing Speech Voice Recognition Software. Grammatical errors, random word insertions, pronoun errors, and incomplete sentences are an occasional consequence of this system due to software limitations, ambient noise, and hardware issues. Any formal questions or concerns about the content, text, or information contained within the body of this dictation should be directly addressed to the provider for clarification. History of Present Illness Chief Complaint: Productive Cough & SOB Primary Care Provider: Aman Crawford MD Will Garcia is a 74y/o M with PMHx significant for HLD, asthma-COPD overlap syndrome, multiple lung nodules, diverticulosis, congenital left single kidney, Kathleen syndrome, nonmuscle invasive bladder cancer currently under surveillance with [facility] and tobacco use disorder who presented to the ED for evaluation secondary to productive cough and SOB. History obtained from the patient and associated chart review. Patient seen at bedside with Dr. Willis. Patient with productive cough of dark green/brown sputum and progressive SOB since this past Wednesday. Denies any recorded fevers but does endorse some chills. No oxygen use at home. Currently smokes 1 PPD. Did have some right-sided chest wall pain this past evening but this has since decided. Denies any chest pain. Feels breathing is somewhat improved since arriving to ED. Currently on 5L NC. Follows with a ip litigation associate from the [place] - unsure of physician's name. Denies any urinary or bowel habit issues. Allergies Allergy/AdvReac Type Severity Reaction Status Date / Time Penicillins Allergy Intermediate PROSTATE Verified 05/29/20 10:41 SWELLED Home Medications Medication Instructions Recorded Confirmed Type atorvastatin 10 mg tablet 10 mg PO DAILY 03/29/19 09/09/24 History calcium carbonate (Calcium 600) 600 mg PO DAILY 03/29/19 09/09/24 History cholecalciferol (vitamin D3) 50 2,000 unit PO DAILY 03/29/19 09/09/24 History mcg (2,000 unit) capsule (Vitamin D3) epinephrine 0.3 mg/0.3 mL 0.3 mg (0.3 mL) IM Q3H PRN 03/29/19 09/09/24 Rx injection, auto-injector (EpiPen bronchodilation #2 ea 2-Kamaljit) glucosamine sulfate 500 mg tablet 500 mg PO DAILY 03/29/19 09/09/24 History lactobacillus combination no.4 3 0 mmu cells PO DAILY 03/29/19 09/09/24 History billion cell capsule (Probiotic) multivitamin 1 tab PO DAILY 03/29/19 09/09/24 History vitamins A,C,G-xnvu-clomrl 2,148 1 tab PO DAILY 03/29/19 09/09/24 History mcg-113 mg-45 mg-17.4 mg tablet (PreserVision AREDS) Curcumin 1 cap PO DAILY 09/23/19 09/09/24 History coenzyme Q10 30 mg capsule (CoQ-10) 30 mg PO DAILY 09/23/19 09/09/24 History fiber 4 cap PO DAILY 09/23/19 09/09/24 History fluticasone 100 mcg-salmeterol 50 1 inh inhalation BID 09/09/24 09/09/24 History mcg/dose blistr powdr for inhalation tiotropium bromide 2.5 2 inh inhalation DAILY 09/09/24 09/09/24 History mcg/actuation mist for inhalation (Spiriva Respimat) Past Med/Surg History Problem List Lactic acidosis Tobacco use disorder Elevated brain natriuretic peptide (BNP) level Elevated d-dimer Elevated troponin Pulmonary arterial hypertension Incidental lung nodule Acute exacerbation of COPD with asthma Severe sepsis Hypomagnesemia Acute hypoxic respiratory failure Bronchopneumonia Sepsis Pneumonia (Acute) Influenza A (Acute) Hypoxia (Acute) Acute exacerbation of chronic obstructive pulmonary disease (Acute) Solitary kidney Bladder cancer Medical History Hyperlipidemia Stomach ulcer No significant past medical history Surgical History S/P hernia repair S/P bladder tumor excision with fulguration Hx of arthroscopy of knee Family History Father Diabetes Sister Diabetes Mother Lung cancer Other No significant family history Social History Smoking Status: Former smoker Tobacco Type: Cigarettes Hx Alcohol Use: Yes Preferred Language: Nepali marital status: current occupational status: retired Feels Safe at Home: Yes Review of Systems Review of Systems: At least ten systems reviewed and negative, except as noted in the HPI. Physical Exam Physical Exam: Please refer to Dr. Willis's addendum for physical examination findings. Results & Data Results & Data Vital Signs (Past 12 Hours) Vital Signs Temp Pulse Pulse Resp BP BP Pulse Ox 09/09/24 11:00 116 H 22 102/64 95 09/09/24 09:28 128 H 24 132/84 96 09/09/24 08:17 117 H 09/09/24 08:04 124 H 19 96 09/09/24 07:58 122 H 34 H 76 L 09/09/24 07:50 81 L 09/09/24 07:41 37.4 C 128 H 26 H 125/77 87 L O2 Del Method O2 Flow Rate 09/09/24 11:00 Nasal Cannula 4 09/09/24 09:28 Nasal Cannula 4 09/09/24 08:17 09/09/24 08:04 Nasal Cannula 4 09/09/24 07:58 Room Air 09/09/24 07:50 Room Air 09/09/24 07:41 Room Air Laboratory Results Short CBC 09/09/24 Range/Units 07:52 WBC 17.88 H (4.8-10.8) K/ul Hgb 15.3 (14.0-18.0) g/dl Hct 45.3 (42.0-52.0) % Plt Count 209 (130-400) K/uL BMP 09/09/24 07:52 Sodium 134 L Potassium 4.1 Chloride 93 L Carbon Dioxide 30 BUN 26 H Creatinine 1.10 Glucose 120 H Calcium 9.8 Liver Function 09/09/24 Range/Units 07:52 Total Bilirubin 1.0 (0.2-1.0) mg/dl AST 21 (13-39) U/L ALT 16 (7-52) U/L Alkaline Phosphatase 55 (34-104) U/L Albumin 4.3 (3.4-5.0) gm/dl Diagnostic Findings Chest X-Ray 09/09/24 07:50 EXAM: XR chest 1V portable CLINICAL HISTORY: Dyspnea. TECHNIQUE: An X-ray image of the chest is obtained in PA projection. COMPARISON: No prior studies are available for comparison. FINDINGS: Pulmonary Parenchyma: Left lower small nodular opacity, follow-up is needed. Hyperinflatted both lungs suggesting emphysematous changes. Bulky both yahaira with peripheral pruning of pulmonary artery suggesting pulmonary arterial hypertension. Bilateral mainly basal increase bronchovascular markings with peribronchial wall thickening suggesting lung congestion. No evidence of consolidation, collapse, or focal opacities. No pulmonary nodules are identified. No evidence of pleural effusion or pleural thickening. Heart and Mediastinum: Heart size and shape are normal. No mediastinal widening or masses. No hilar or mediastinal lymphadenopathy. Bony Thorax: The bony thorax appears intact without fractures or deformities. Soft Tissues: Soft tissues overlying the chest wall are unremarkable. IMPRESSION: 1. Left lower small nodular opacity, follow-up is needed. 2. Hyperinflatted both lungs suggesting emphysematous changes. 3. Bulky both yahaira with the peripheral running of pulmonary artery suggesting pulmonary arterial hypertension. 4. Accentuated perihilar and basal bronchovascular markings suggest lung congestion. Electronically signed by Jaquan Rodriguez 09-09-2024 08:45 AM Chest CTA 09/09/24 08:36 CT ANGIOGRAPHY OF THE CHEST, PULMONARY EMBOLUS PROTOCOL CLINICAL HISTORY: Chest pain and shortness of breath. Evaluate for pulmonary embolus. COMPARISON STUDY: Chest radiograph performed earlier today. TECHNIQUE: Following IV administration of 118 mL of Optiray, helical axial images of the chest were obtained utilizing the pulmonary embolus protocol. Maximal intensity projections and sagittal and coronal reformats were viewed on an independent 3D workstation. IV contrast was administered without complication. Automated exposure control was utilized for the study. A dose lowering technique was utilized adhering to the principles of ALARA. CT DOSE: 362.81 mGy.cm FINDINGS: No pulmonary emboli are identified. There is no thoracic aortic dissection. Size of the heart is normal. Extensive coronary artery calcification is present. Enlarged right hilar lymph node on image 152 of 291 measures 2.6 x 1.6 cm. Severe emphysema is noted. Several small subpleural alveolar opacities are present. The largest is within the left lower lobe. There are additional alveolar opacities within the right middle lobe and right lower lobe. Scattered tree-in-bud nodules are present. Lungs are suboptimally assessed due to respiratory motion. Bronchial wall thickening is present. A small amount of secretions within the trachea are present. There is no central obstructing mass. A 1.7 cm subpleural nodular density within the superior segment of the left lower lobe on image 167 is noted. There is an additional circumscribed 8 mm right upper lobe nodule on image 220. No acute fractures are identified within the bony thorax. There is a 4 mm left renal calculus. IMPRESSION: 1. No pulmonary emboli identified. 2. Emphysema. 3. A few small subpleural alveolar opacities suggestive of an infectious process such as bronchopneumonia. Scattered tree-in-bud nodules. Mild bronchial wall thickening. 4. 1.7 cm subpleural nodular opacity within the left lower lobe. This is indeterminate and a neoplasm cannot be excluded. A resolving pneumonia could appear similar. A follow-up chest CT in 2 months is recommended. 5. Mildly enlarged right hilar lymph node. This may be reactive but should be assessed on follow-up CT to ensure stability/resolution. 6. Extensive coronary artery calcification. ACT 112: Negative or not required by law. Electronically signed by: Wm Alexander M.D. 09/09/2024 10:59 AM Medications Administered Discontinued Medications Albuterol (Albut/Ipratrop 3mg/0.5mg Neb 3 Ml Vial) 12 ml NEB ONE ONE; Protocol Stop: 09/09/24 07:51 Last Admin: 09/09/24 08:00 Dose: 12 ml Documented By: RUSH Sodium Chloride (Nss) 500 mls @ 999 mls/hr IV .Q31M ONE Stop: 09/09/24 08:20 Last Infusion: 09/09/24 09:24 Dose: Infused Documented By: Admin: 09/09/24 08:05 Dose: 999 mls/hr Documented By: AMS Magnesium Sulfate/Dextrose (Magnesium Sulfate / D5w) 1 gm in 100 mls @ 100 mls/hr IV NOW STA Stop: 09/09/24 08:49 Last Infusion: 09/09/24 09:24 Dose: Infused Documented By: Admin: 09/09/24 08:06 Dose: 100 mls/hr Documented By: AMS Sodium Chloride (Nss) 500 mls @ 999 mls/hr IV .Q31M ONE Stop: 09/09/24 09:02 Last Infusion: 09/09/24 10:09 Dose: Infused Documented By: Admin: 09/09/24 09:25 Dose: 999 mls/hr Documented By: AMS Ceftriaxone Sodium (Rocephin) 2,000 mg in 50 mls @ 100 mls/hr IV NOW STA Stop: 09/09/24 09:02 Last Infusion: 09/09/24 10:08 Dose: Infused Documented By: Admin: 09/09/24 09:04 Dose: 100 mls/hr Documented By: AMS Ioversol (Optiray 320 125ml) 118 ml IV ONCE ONE Stop: 09/09/24 10:20 Last Admin: 09/09/24 10:19 Dose: 118 ml Documented By: JANINA Methylprednisolone (Methylprednisolone 125 Mg/2 Ml Vial) 125 mg IV NOW STA Stop: 09/09/24 07:51 Last Admin: 09/09/24 08:05 Dose: 125 mg Documented By: AMS Code Status & VTE Plan Code Status FULL CODE Supervising Physician Co-Signing Physician Notes Attending Addendum: Case reviewed with the advanced practitioner. I have personally performed a history and physical examination on the patient. I have reviewed the advanced practitioner's documentation on the date of service referenced in note, and I agree with, and take responsibility for the plan of care. please refer to her notes for full details patient seen and examined, records reviewed by myself as well on exam, patient Seen resting in bed, not in distress, mildly tachypneic, no effort or respiratory muscle use while speaking States breathing is better since admission, after initial treatment at the ER Denies active shortness of breath, chest pain, palpitations, dizziness, nausea vomiting, abdominal pain, etc. no other symptoms VS noted and reviewed General- oriented x 3, not in distress, speaks in sentences with no effort or accessory muscle use Mild tachypnea Eyes- anicteric Neck- no JVD Lungs- Diminished breath sounds bilaterally, occasional rhonchi, no wheezing Heart- Mildly tachycardic, regular rhythm; no murmurs Abdomen- normal bowel sounds, nondistended, soft, nontender Extremities- no pretibial edema, no calf tenderness Neuro- alert, oriented x 3; no gross focal neurologic deficits Skin- warm & dry all labs, imaging noted and reviewed ASSESSMENT AND PLAN Sepsis secondary to pneumonia, influenza A, possible bacterial secondary infection COPD exacerbation with acute hypoxic respiratory failure secondary to above Currently on 4 L of O2 via nasal cannula Does not use oxygen at home Lactic acid: Pending Blood cultures: Pending Sputum culture: Ordered MRSA nasal swab: Ordered CT chest: 1. No pulmonary emboli identified. 2. Emphysema. 3. A few small subpleural alveolar opacities suggestive of an infectious process such as bronchopneumonia. Scattered tree-in-bud nodules. Mild bronchial wall thickening. 4. 1.7 cm subpleural nodular opacity within the left lower lobe. This is indeterminate and a neoplasm cannot be excluded. A resolving pneumonia could appear similar. A follow-up chest CT in 2 months is recommended. 5. Mildly enlarged right hilar lymph node. This may be reactive but should be assessed on follow-up CT to ensure stability/resolution. 6. Extensive coronary artery calcification. Cefepime plus azithromycin Tamiflu Solu-Medrol 40 mg every 8 hours Nebs every 6 hours, hypertonic saline twice daily Mucinex twice daily Incentive spirometry, flutter valve Lung nodule Seen on CT chest, repeat CT scan of the chest as an outpatient Mild troponin elevation Extensive coronary artery calcifications on CT chest Likely demand ischemia from hypoxia No cardiac symptoms Trop 36, 30, third set pending EKG no signs of ischemia or infarct BNP mildly elevated Start aspirin 81 mg p.o. daily if with no contraindications Already on atorvastatin Check lipid panel D-dimer elevation CT chest negative Check Doppler ultrasound I spent a total of 35 minutes coordinating, documenting, and providing care for this patient, excluding time spent in the performance of separately billed services or time spent by another provider/QHP. Walter Willis MD (9) Bladder cancer Bladder location: unspecified site Qualified Code(s): C67.9 - Malignant neoplasm of bladder, unspecified (15) Hyperlipidemia Hyperlipidemia type: unspecified Qualified Code(s): E78.5 - Hyperlipidemia, unspecified
[2024-09-09] MEDS: OSELTAMIVIR PHOSPHATE 75 MG CAP PO STA (12:42)
[2024-09-09] MEDS ORDERED: ALBUT/IPRATROP 3MG/0.5MG NEB 3 ML VIAL NEB SCH (13:00)
[2024-09-09 13:05] LABS: Appearance Urine Clear (Clear); Bacteria Urine Automated None Seen (None Seen); Bilirubin Urine Negative (Negative); Blood Urine Negative (Negative); Cast Urine Automated 0-2 /lpf (0-2); Color Urine Yellow; Epithelial Cell Urine Auto 0-2 /hpf (0-2); Glucose Urine UA Negative (Negative); Ketones Urine Negative (Negative); Leukocyte Esterase Urine Negative (Negative); Nitrite Urine Negative (Negative); Protein Urine 1+ (Negative); RBC Urine Automated 0-2 /hpf (0-2); Specific Gravity Urine > 1.045 (1.000-1.030); Urobilinogen Urine Negative (Negative); WBC Urine Automated 0-5 /hpf (0-5); pH Urine 5.5 (4.5-7.5)
[2024-09-09] MEDS: AZITHROMYCIN 250 MG TAB PO ONE (13:51)
[2024-09-09] MEDS: CEFEPIME 2000MG 2,000 MG/20 ML SYR IV SCH (13:51)
[2024-09-09] MEDS: SODIUM CHLORIDE 0.9% 1,000 ML IV SCH (13:52)
[2024-09-09] MEDS ORDERED: ACETAMINOPHEN 325 MG TAB PO PRN (14:20)
[2024-09-09] MEDS ORDERED: POLYETHYLENE (MIRALAX) 17 GM PACK PO PRN (14:20)
[2024-09-09] MEDS ORDERED: ONDANSETRON INJ 2 MG/ML 2 ML VIAL IV PRN (14:20)
[2024-09-09] MEDS ORDERED: MAGNESIUM HYDROXIDE SUSP 30 ML UDC PO PRN (14:20)
[2024-09-09] MEDS: LEVALBUTEROL HCL 0.63 MG/3 ML NEB NEB STA (14:57)
[2024-09-09] MEDS: IPRATROPIUM BROMIDE NEB SOLN 0.02% 0.5MG/2.5ML VIAL NEB SCH (14:57)
[2024-09-09] MEDS: IPRATROPIUM BROMIDE NEB SOLN 0.02% 0.5MG/2.5ML VIAL NEB STA (14:57)
[2024-09-09] MEDS: LEVALBUTEROL HCL 0.63 MG/3 ML NEB NEB SCH (14:58)
[2024-09-09] MEDS: ADVANCED PROBIOTIC 625 MG CAPSULE PO SCH (15:04)
[2024-09-09] MEDS ORDERED: methylPREDNISolone 125 MG/2 ML VIAL IV SCH (16:00)
[2024-09-09] MEDS: methylPREDNISolone 40 MG in SYRINGE 0 ML IV SCH (16:30)
--- NOTE | 2024-09-09 17:07 | Ultrasound Report ---
EXAM: US venous doppler LE BI CLINICAL HISTORY: Elevated d-dimer TECHNIQUE: Ultrasound examination of bilateral lower extremity veins was performed in real time and duplex. One or more of the following were performed- spectral analysis, resistive index, waveform analysis, and pulsed Doppler. COMPARISON: None. FINDINGS: Normal phasic, non-pulsatile and spontaneous flow is noted in bilateral common femoral, superficial femoral, popliteal and posterior tibial and peroneal veins. Visualized veins of both lower extremities demonstrate normal compressibility. No sonographic evidence of acute deep vein thrombosis (DVT) is detected in the visualized veins of both lower extremities. Compression and Augmentation: All evaluated veins compress fully with applied transducer pressure. Augmentation of venous flow is noted with distal compression. Additional Findings: No evidence of intraluminal thrombus. IMPRESSION: No sonographic evidence of acute DVT detected in bilateral common femoral, superficial femoral, popliteal and posterior tibial and peroneal veins, at the time of examination. Disclaimer: DVT could be missed early in the disease when clot burden is minimal. For patients with moderate and high pretest probability of DVT and negative ultrasound, the [employer] [employer] clinical guidelines recommend testing with a D-dimer assay or repeat ultrasound in 5-7 days. If symptoms worsen, the Society of radiologists in ultrasound recommends repeating ultrasound even earlier. Electronically signed by Jaquan Rodriguez 09-09-2024 5:07 PM
[2024-09-09] MEDS: SODIUM CHLOR 7% 4 ML NEB NEB SCH (21:11)
[2024-09-09] MEDS: guaiFENesin 600 MG TABCR PO SCH (21:37)
[2024-09-09] MEDS: HEPARIN SOD 5,000 UNIT/0.5 ML VIAL SQ SCH (21:38)
[2024-09-10] MEDS: CEFEPIME 2000MG 2,000 MG/20 ML SYR IV SCH (00:24)
[2024-09-10 04:22] LABS: Hematocrit (blood only) 35.2 % (42.0-52.0); Hemoglobin 11.6 g/dl (14.0-18.0); Mean Corpuscular Hemoglobin 31.1 pg (25.0-34.0); Mean Corpuscular Volume 94.4 fL (80.0-100.0); Mean Platelet Volume 9.9 fL (9.4-12.4); Platelet Count 167 K/uL (130-400); RDW Standard Deviation 47.8 fL (36.4-46.3); Red Blood Count 3.73 M/uL (4.70-6.10); White Blood Count 9.27 K/ul (4.8-10.8)
[2024-09-10 04:29] LABS: BUN Creatinine Ratio 27.2 (10-20); Creatinine Clr Calc Pharmacy 56.7 ml/min; Magnesium 1.9 mg/dl (1.7-2.4); Phosphorus 3.8 mg/dl (2.5-4.9); Potassium 4.3 mmol/L (3.5-5.1)
[2024-09-10] MEDS: UMECLIDINIUM BROMIDE 62.5MCG/BLISTER 7 PUFFS/INHALER INH SCH (07:54)
[2024-09-10] MEDS: AZITHROMYCIN 250 MG TAB PO SCH (07:56)
[2024-09-10] MEDS: CHOLECALCIFEROL 25 MCG (1000 UNITS) TAB PO SCH (07:56)
[2024-09-10] MEDS: MULTIVITAMIN TAB PO SCH (07:57)
[2024-09-10] MEDS: ATORVASTATIN 10 MG TAB PO SCH (07:57)
[2024-09-10] MEDS: OSELTAMIVIR PHOSPHATE SUSP 30 MG/5 ML UDP PO SCH (08:09)
[2024-09-10] MEDS ORDERED: FLUTICASONE/VILANTEROL 100/25MCG 14 PUFFS/INHALER INH SCH (09:00)
--- NOTE | 2024-09-10 12:37 | Hospitalist Progress Note ---
Date of Service September 10, 2024 Assessment & Plan (1) Severe sepsis: (2) Lactic acidosis: (3) Influenza A: (4) Bronchopneumonia: (5) Acute hypoxic respiratory failure: (6) Acute exacerbation of COPD with asthma: Plan: Will Garcia is a 74y/o M with PMHx significant for HLD, asthma-COPD overlap syndrome, multiple lung nodules, diverticulosis, congenital left single kidney, Kathleen syndrome, nonmuscle invasive bladder cancer currently under surveillance with [facility] and tobacco use disorder who presented to the ED for evaluation secondary to productive cough and SOB. Was sating at 76% on RA on arrival. Meets severe sepsis criteria given HR>100, WBC>12k, RR>20, active infection and lactic acidosis. Initial labs reviewed. WBC 17.8k, lactate 3.1. Negative procalcitonin. Respiratory BioFire panel + for influenza A. D-dimer 1010. Chest CTA negative for PE but does note few small subpleural alveolar opacities c/f bronchopneumonia. CXR with accentuated perihilar basilar bronchovascular markings suggesting lung congestion, hyperinflated lungs suggesting emphysematous changes. Continue on Tamiflu for 5 days Continue on cefepime, azithromycin Continue on IV steroids Budesonide, formoterol nebs, also on DuoNebs, hypertonic saline and Mucinex. wean oxygen as tolerated (7) Bladder cancer: Plan: Follows with Dr. Bell of [facility]. Patient with recurrence of non-muscle invasive bladder cancer. Recurrent bladder cancer with low-grade TA disease on most recent biopsy. Currently under continued surveillance with cystoscopy every 3 months. (8) Incidental lung nodule: Plan: Chest CTA notes a 1.7cm subpleural nodular opacity within the left lower lobe. This is indeterminate and neoplasm cannot be excluded. A resolving pneumonia could appear similar. Will need follow-up chest CT in 2 months. I discussed the finding with the patient regarding the nodule on 09/10/2024; he reports that he follows up with lung clinic. He verbalized understanding of the CT chest finding and will follow-up with his primary care doctor. (9) Elevated troponin: Plan: Suspect demand ischemia ISO acute illness as per above. High sensitive troponin of 36 on admission; flat trend Echocardiogram showed normal EF; no wall motion abnormality. (10) Tobacco use disorder: Plan: Smokes 1ppd. Denies need for nicotine patch. Encourage smoking cessation. (11) Hyperlipidemia: Plan: Chronic, stable. Continue atorvastatin 10mg daily. DVT Prophylaxis: SQ Heparin Code Status: FULL CODE - As per direct conversation with patient at bedside. PCP: Aman Crawford MD Disposition: from home. obtain PT OT Time spent evaluating patient, direct bedside care, chart review, placing orders, interpretation of diagnostic studies, discussion with consultants, patient, and family members, as well as other required patient management activities is 50 minutes Please note the above document was generated using voice recognition software. It may contain grammatical, syntax or spelling errors. Any formal questions or concerns about the content, text or information contained within the body of this dictation should be directly addressed to the provider for clarification Admission and Anticipated Discharge Date Admission Date: September 09, 2024 Subjective Patient reports that he is feeling better compared to yesterday Shortness of breath has improved He is still requiring 5 L of oxygen by nasal cannula Review of Systems Review of Systems: All systems reviewed & are unremarkable except as noted in Subjective Physical Exam Physical Exam: Constitutional: Alert oriented x 3; not in distress. Respiratory: Decreased bilateral air entry. Occasional wheeze Cardiovascular: RRR, no murmur, no edema Vessels: no JVD or carotid bruit Chest: normal inspection of chest Abdomen: normal bowel sounds, soft, nontender, no hepatosplenomegaly Musculoskeletal: no cyanosis or clubbing, extremities motor strength 5/5 Skin: no rashes, warm and dry normal turgor Neurologic: PERRL, EOMI, accommodation nl, no face palsy, no dysarthria CN's II- XI intact bilaterally and moves all extremities Results & Data Results & Data Vital Signs (Past 12 Hours) Vital Signs Temp Pulse Resp BP Pulse Ox O2 Del Method O2 Flow Rate 09/10/24 11:00 36.6 C 91 H 18 120/70 91 Nasal Cannula 09/10/24 07:45 Nasal Cannula 09/10/24 07:28 93 H 18 90 Nasal Cannula 09/10/24 07:16 36.5 C 89 18 125/54 L 92 Nasal Cannula 09/10/24 03:18 36.9 C 88 18 98/62 L 93 Nasal Cannula 09/10/24 00:54 Nasal Cannula 5 02/16/25 00:54 37 C 84 18 108/58 L 95 Nasal Cannula 5 (7) Bladder cancer Bladder location: unspecified site Qualified Code(s): C67.9 - Malignant neoplasm of bladder, unspecified (11) Hyperlipidemia Hyperlipidemia type: unspecified Qualified Code(s): E78.5 - Hyperlipidemia, unspecified
[2024-09-10] MEDS: BUDESONIDE 0.5 MG/2 ML VIAL (PULMICORT) NEB SCH (13:57)
[2024-09-10] MEDS: FORMOTEROL 20 MCG/2 ML VIAL NEB SCH (13:57)
[2024-09-11 07:29] LABS: Basophils # (auto) 0.01 K/uL (0.00-0.20); Basophils % (auto) 0.1 %; Hemoglobin 12.9 g/dl (14.0-18.0); Immature Granulocytes # (auto) 0.06 K/uL (0.01-0.20); Immature Granulocytes % (auto) 0.8 %; Lymphocytes # (auto) 0.31 K/uL (1.20-3.40); Mean Corpuscular Hemoglobin 32.3 pg (25.0-34.0); Mean Corpuscular Hgb Conc 33.9 g/dL (32.0-36.0); Mean Platelet Volume 10.4 fL (9.4-12.4); Monocytes # (auto) 0.55 K/uL (0.11-0.59); Neutrophils # (auto) 6.91 K/uL (1.40-6.50); Neutrophils % (auto) 88.1 %; Platelet Count 245 K/uL (130-400); RDW Coefficient of Variation 13.8 % (11.5-14.5); RDW Standard Deviation 48.4 fL (36.4-46.3); White Blood Count 7.84 K/ul (4.8-10.8)
[2024-09-11 07:51] LABS: BUN Creatinine Ratio 31.3 (10-20); Calcium 8.3 mg/dl (8.6-10.3); Creatinine Clr Calc Pharmacy 52.7 ml/min
--- NOTE | 2024-09-11 09:23 | Hospitalist Progress Note ---
Date of Service September 11, 2024 Assessment & Plan (1) Severe sepsis: (2) Lactic acidosis: (3) Influenza A: (4) Bronchopneumonia: (5) Acute hypoxic respiratory failure: (6) Acute exacerbation of COPD with asthma: Plan: Will Garcia is a 74y/o M with PMHx significant for HLD, asthma-COPD overlap syndrome, multiple lung nodules, diverticulosis, congenital left single kidney, Kathleen syndrome, nonmuscle invasive bladder cancer currently under surveillance with [facility] and tobacco use disorder who presented to the ED for evaluation secondary to productive cough and SOB. Was sating at 76% on RA on arrival. Meets severe sepsis criteria given HR>100, WBC>12k, RR>20, active infection and lactic acidosis. Initial labs reviewed. WBC 17.8k, lactate 3.1. Negative procalcitonin. Respiratory BioFire panel + for influenza A. D-dimer 1010. Chest CTA negative for PE but does note few small subpleural alveolar opacities c/f bronchopneumonia. CXR with accentuated perihilar basilar bronchovascular markings suggesting lung congestion, hyperinflated lungs suggesting emphysematous changes. Continue on Tamiflu for 5 days Continue on cefepime, azithromycin Continue on IV steroids Budesonide, formoterol nebs, also on DuoNebs, hypertonic saline and Mucinex. wean oxygen as tolerated (7) Bladder cancer: Plan: Follows with Dr. Bell of [facility]. Patient with recurrence of non-muscle invasive bladder cancer. Recurrent bladder cancer with low-grade TA disease on most recent biopsy. Currently under continued surveillance with cystoscopy every 3 months. (8) Incidental lung nodule: Plan: Chest CTA notes a 1.7cm subpleural nodular opacity within the left lower lobe. This is indeterminate and neoplasm cannot be excluded. A resolving pneumonia could appear similar. Will need follow-up chest CT in 2 months. I discussed the finding with the patient regarding the nodule on 09/10/2024; he reports that he follows up with lung clinic. He verbalized understanding of the CT chest finding and will follow-up with his primary care doctor. (9) Elevated troponin: Plan: Suspect demand ischemia ISO acute illness as per above. High sensitive troponin of 36 on admission; flat trend Echocardiogram showed normal EF; no wall motion abnormality. (10) Tobacco use disorder: Plan: Smokes 1ppd. Denies need for nicotine patch. Encourage smoking cessation. (11) Hyperlipidemia: Plan: Chronic, stable. Continue atorvastatin 10mg daily. DVT Prophylaxis: SQ Heparin Code Status: FULL CODE - As per direct conversation with patient at bedside. PCP: Aman Crawford MD Disposition: from home. obtain PT OT Time spent evaluating patient, direct bedside care, chart review, placing orders, interpretation of diagnostic studies, discussion with consultants, patient, and family members, as well as other required patient management activities is 50 minutes Please note the above document was generated using voice recognition software. It may contain grammatical, syntax or spelling errors. Any formal questions or concerns about the content, text or information contained within the body of this dictation should be directly addressed to the provider for clarification Admission and Anticipated Discharge Date Admission Date: September 09, 2024 Subjective Patient continues to report improvement in his symptoms. However, he is still requiring 5 L of oxygen via nasal cannula Review of Systems Review of Systems: All systems reviewed & are unremarkable except as noted in Subjective Physical Exam Physical Exam: Constitutional: Alert oriented x 3; not in distress. Respiratory: Decreased bilateral air entry. Occasional wheeze Cardiovascular: RRR, no murmur, no edema Vessels: no JVD or carotid bruit Chest: normal inspection of chest Abdomen: normal bowel sounds, soft, nontender, no hepatosplenomegaly Musculoskeletal: no cyanosis or clubbing, extremities motor strength 5/5 Skin: no rashes, warm and dry normal turgor Neurologic: PERRL, EOMI, accommodation nl, no face palsy, no dysarthria CN's II- XI intact bilaterally and moves all extremities Results & Data Results & Data Vital Signs (Past 12 Hours) Vital Signs Temp Pulse Pulse Resp BP Pulse Ox O2 Del Method 09/11/24 08:14 36.5 C 89 18 133/80 91 Nasal Cannula 09/11/24 06:09 80 18 96 Nasal Cannula 09/11/24 05:42 65 09/11/24 03:10 36.5 C 80 18 120/78 94 Nasal Cannula 09/10/24 23:06 77 09/10/24 22:54 37.0 C 80 18 107/62 96 Nasal Cannula O2 Flow Rate 09/11/24 08:14 5 09/11/24 06:09 5 09/11/24 05:42 09/11/24 03:10 09/10/24 23:06 09/10/24 22:54 (7) Bladder cancer Bladder location: unspecified site Qualified Code(s): C67.9 - Malignant ne oplasm of bladder, unspecified (11) Hyperlipidemia Hyperlipidemia type: unspecified Qualified Code(s): E78.5 - Hyperlipidemia, unspecified
[2024-09-11] MEDS: NICOTINE POLACRILEX 2 MG GUM MT PRN (12:29)
[2024-09-11] MEDS: NICOTINE 21 MG/24 HR TDSY TD SCH (13:18)
[2024-09-12 07:49] VITALS: TEMP 97.9
[2024-09-12 10:58] VITALS: BP 142/72; PULSE 60; RESP 20; O2SAT 91
--- NOTE | 2024-09-12 11:05 | Discharge Summary ---
Date of Service September 12, 2024 Admission HPI Per Admitting Provider Will Garcia is a 74y/o M with PMHx significant for HLD, asthma-COPD overlap syndrome, multiple lung nodules, diverticulosis, congenital left single kidney, Kathleen syndrome, nonmuscle invasive bladder cancer currently under surveillance with [facility] and tobacco use disorder who presented to the ED for evaluation secondary to productive cough and SOB. History obtained from the patient and associated chart review. Patient seen at bedside with Dr. Willis. Patient with productive cough of dark green/brown sputum and progressive SOB since this past Wednesday. Denies any recorded fevers but does endorse some chills. No oxygen use at home. Currently smokes 1 PPD. Did have some right-sided chest wall pain this past evening but this has since decided. Denies any chest pain. Feels breathing is somewhat improved since arriving to ED. Currently on 5L NC. Follows with a supervisor water softener service from the [place] - unsure of physician's name. Denies any urinary or bowel habit issues. Admission Exam Per Admitting Provider General- oriented x 3, not in distress, speaks in sentences with no effort or accessory muscle use Mild tachypnea Eyes- anicteric Neck- no JVD Lungs- Diminished breath sounds bilaterally, occasional rhonchi, no wheezing Heart- Mildly tachycardic, regular rhythm; no murmurs Abdomen- normal bowel sounds, nondistended, soft, nontender Extremities- no pretibial edema, no calf tenderness Neuro- alert, oriented x 3; no gross focal neurologic deficits Skin- warm & dry Principal Diagnosis (1) Severe sepsis: (2) Lactic acidosis: (3) Influenza A: (4) Bronchopneumonia: (5) Acute hypoxic respiratory failure: (6) Acute exacerbation of COPD with asthma: Discharge Exam Constitutional: Alert oriented x 3; not in distress. Respiratory:Bilateral clear breath sound. Cardiovascular: RRR, no murmur, no edema Vessels: no JVD or carotid bruit Chest: normal inspection of chest Abdomen: normal bowel sounds, soft, nontender, no hepatosplenomegaly Musculoskeletal: no cyanosis or clubbing, extremities motor strength 5/5 Skin: no rashes, warm and dry normal turgor Neurologic: PERRL, EOMI, accommodation nl, no face palsy, no dysarthria CN's II- XI intact bilaterally and moves all extremities Discharge Data Allergies Allergy/AdvReac Type Severity Reaction Status Date / Time Penicillins Allergy Intermediate PROSTATE Verified 05/29/20 10:41 SWELLED Consultations 09/09/24 11:41 ED Decision to Admit Stat Ordered Studies 09/09/24 08:36 CT angio chest PE protocol Stat 09/09/24 12:35 US venous doppler LE BI Routine Hospital Course (1) Severe sepsis: (2) Lactic acidosis: (3) Influenza A: (4) Bronchopneumonia: (5) Acute hypoxic respiratory failure: (6) Acute exacerbation of COPD with asthma: (7) Bladder cancer: (8) Incidental lung nodule: (9) Elevated troponin: (10) Tobacco use disorder: (11) Hyperlipidemia: Will Garcia is a 74y/o M with PMHx significant for HLD, asthma-COPD overlap syndrome, multiple lung nodules, diverticulosis, congenital left single kidney, Kathleen syndrome, nonmuscle invasive bladder cancer currently under surveillance with [facility] and tobacco use disorder who presented to the ED for [place] l[place] secondary to productive cough and SOB. patient Was sating at 76% on RA on arrival. Initial labs- WBC 17.8k, lactate 3.1. Negative procalcitonin. Respiratory BioFire panel + for influenza A. D-dimer 1010. Chest CTA negative for PE but does note few small subpleural alveolar opacities c/f bronchopneumonia. During the hospitalization, patient was admitted to telemetry floor l for COPD exacerbation; was started on Tamiflu, antibiotic, IV steroid, budesonide, formoterol nebs, DuoNebs, hypertonic saline and Mucinex. Patient reported significant improvement in the symptoms. His oxygen requirement down trended from 5 L by nasal cannula to room air. Two-step oxygen evaluation was done at the time of the discharge; patient needed 2 L on exertion. The CT of the chest during the hospitalization showed 1.7 centimeters subpleural nodular opacity within the left lower lobe. I discussed the finding with the patient; recommended to obtain follow-up in 6 to 8 weeks time to ensure resolution. Patient verbalized understanding and will follow-up with his PCP and pulmonology regarding it. Please note the above document was generated using voice recognition software. It may contain grammatical, syntax or spelling errors. Any formal questions or concerns about the content, text or information contained within the body of this dictation should be directly addressed to the provider for clarification Total Time Total Time Spent Total Time Spent (In Minutes): 45 Total Time Includes: Examination of the Patient, Discharge Planning, Medication Reconciliation, Communication With Other Providers and Other Discharge Plan Discharge Items Patient Disposition: Home - Self-Care Reason For Visit: SEPSIS 2/2 PNA ISO INFLUENZA A Discharge Diagnosis: (1) Severe sepsis: (2) Lactic acidosis: (3) Influenza A Activity: Resume your previous activity Non-emergency contact: Primary Care Provider Call non-emergency contact if: you have any medication questions and your symptoms worsen Follow-up/Referrals: Aman Crawford MD [Primary Care Provider] - (Date & Time 09/19/2024 11:00 AM Provider: Aman Crawford MD [facility] ) Diet: Regular Addtl Attending Provider Instructions: You were admitted to the hospital with COPD flareup. You are treated with antibiotics, breathing treatment during the hospitalization. You are prescribed following medication Take cefdinir for 2 more days to complete the antibiotic course Take Tamiflu 30 mg twice a day for 3 days Take prednisone 40 mg for 4 more days Please follow-up with your primary care doctor and pulmonology. Pending Studies at Discharge: No Stand-Alone Forms: [facility], Smoking Cessation Medications and DC Order Prescriptions: New oseltamivir [Tamiflu] 6 mg/mL Suspension For Reconstitution 30 mg PO BID 3 Days Qty: 30 0RF guaifenesin [Mucinex] 600 mg Tablet Extended Release 12hr 1,200 mg PO Q12 5 Days Qty: 20 0RF prednisone 20 mg tablet 40 mg PO DAILY 4 Days Qty: 8 0RF Continued coenzyme Q10 [CoQ-10] 30 mg Capsule 30 mg PO DAILY Curcumin 1 cap PO DAILY fiber 4 cap PO DAILY multivitamin Tablet 1 tab PO DAILY atorvastatin 10 mg tablet 10 mg PO DAILY glucosamine sulfate 500 mg Tablet 500 mg PO DAILY calcium carbonate [Calcium 600] 600 mg calcium (1,500 mg) Tablet 600 mg PO DAILY cholecalciferol (vitamin D3) [Vitamin D3] 2,000 unit Capsule 2,000 unit PO DAILY Probiotic 3 billion cell Capsule 0 mmu cells PO DAILY PreserVision AREDS [id number] Tablet 1 tab PO DAILY epinephrine [EpiPen 2-Kamaljit] 0.3 mg/0.3 mL auto-injector 0.3 mg IM Q3H PRN (Reason: bronchodilation) Qty: 2 0RF Rx Instructions: Prior allergy to hornet sting. Spiriva Respimat 2.5 mcg/actuation mist 2 inh INHALATION DAILY fluticasone propion-salmeterol 100-50 mcg/dose Blister With Device 1 inh INHALATION BID Discharge Orders: Discharge Order (Routine); Ordered 09/12/24 Ordered By: Demetrio Xavier Admission Data Admit Date/Time: 09/09/24 11:55 Attending Provider: Demetrio Xavier Admit Provider: Walter Willis Primary Care Provider: Aman Crawford Other Providers: Walter Willis
--- NOTE | 2024-09-12 12:35 | Electrocardiogram Report ---
Test Reason : Blood Pressure : */* mmHG Vent. Rate : 81 BPM Atrial Rate : 81 BPM P-R Int : 166 ms QRS Dur : 80 ms QT Int : 368 ms P-R-T Axes : 77 77 80 degrees QTcB Int : 427 ms Normal sinus rhythm When compared with ECG of 09-Sep-2024 07:50, Premature ventricular complexes are no longer Present Vent. rate has decreased by 48 bpm Confirmed by Boaz Marie ([id number]) on 09/12/2024 12:35:35 PM Referred By: REFERRED SELF Confirmed By: Boaz Marie
--- NOTE | 2024-09-12 12:36 | Electrocardiogram Report ---
Test Reason : Blood Pressure : */* mmHG Vent. Rate : 68 BPM Atrial Rate : 68 BPM P-R Int : 164 ms QRS Dur : 82 ms QT Int : 372 ms P-R-T Axes : 95 94 83 degrees QTcB Int : 395 ms Normal sinus rhythm Rightward axis Borderline ECG When compared with ECG of 10-Sep-2024 06:05, (unconfirmed) No significant change was found Confirmed by Boaz Marie ([id number] on 09/12/2024 12:35:40 PM Referred By: REFERRED SELF Confirmed By: Boaz Marie
== END 2024-09-12 14:42 | disposition home or self-care (01) | DRG 871 ==
LOC: ED 07:27 → EDINP 11:55 → SUATTDRO 11:55 → 2S 14:20
DX: R65.20 Severe sepsis without septic shock; J44.0 Chronic obstructive pulmonary disease with (acute) lower respiratory infection; J96.01 Acute respiratory failure with hypoxia; J10.00 Influenza due to other identified influenza virus with unspecified type of pneumonia; R91.8 Other nonspecific abnormal finding of lung field; E83.42 Hypomagnesemia; E87.20 Acidosis, unspecified; I27.20 Pulmonary hypertension, unspecified; E78.5 Hyperlipidemia, unspecified; I24.89 Other forms of acute ischemic heart disease; C67.9 Malignant neoplasm of bladder, unspecified; Z88.0 Allergy status to penicillin; F17.210 Nicotine dependence, cigarettes, uncomplicated; Q60.0 Renal agenesis, unilateral; Z79.899 Other long term (current) drug therapy; J45.909 Unspecified asthma, uncomplicated; A41.89 Other specified sepsis; R79.1 Abnormal coagulation profile